=== PATIENT | female | born 1945 | race Hispanic/Latino ===

== ENCOUNTER 2022-07-20 06:23 | Inpatient (IN) | payer MEDICARE ==
[~2022-07-20] VITALS: Ht 152.4 cm; Wt 50.8 kg
[2022-07-20] MEDS ORDERED: MORPHINE 2 MG SYG ONE (08:15)
[2022-07-20] MEDS ORDERED: MORPHINE 2 MG SYG IVP ONE (08:30)
[2022-07-20] MEDS ORDERED: LEVE500T19 PO (09:27)
[2022-07-20] MEDS ORDERED: EMPA10TA PO (09:27)
[2022-07-20] MEDS ORDERED: SERT-438 PO (09:27)
[2022-07-20] MEDS ORDERED: CETI10TA57 PO (09:27)
[2022-07-20] MEDS ORDERED: OLAN5TAB76 PO (09:27)
[2022-07-20] MEDS ORDERED: FOLI1 PO (09:27)
[2022-07-20] MEDS ORDERED: ATOR10 PO (09:27)
[2022-07-20 10:11] LABS: BASOPHILS % (AUTO) 0.2 % (0.0-5.0); EOSINOPHILS % (AUTO) 0.3 % (0.0-8.0); HEMATOCRIT 27.5 % (36-48); LYMPHOCYTES % (AUTO) 10.8 % (21.0-51.0); MEAN CORPUSCULAR HEMOGLOBIN 30.1 pg (27.0-33.0); MEAN CORPUSCULAR HGB CONC 33.1 g/dL (32.0-36.0); MEAN CORPUSCULAR VOLUME 91.1 fL (79-99); NEUTROPHILS % (AUTO) 82.1 % (40.0-77.0); PLATELET COUNT (AUTO) 238 K/uL (130-400); RED BLOOD CELL COUNT(AUTO) 3.02 MIL/uL (4.00-5.50); RED CELL DISTRIBUTION WIDTH 13.6 % (11.0-15.5); WHITE BLOOD COUNT (AUTO) 9.5 K/uL (4.8-10.8)
[2022-07-20 10:22] LABS: INR 1.06 (0.85-1.15); PROTHROMBIN TIME 11.5 SEC (9.6-11.6)
[2022-07-20 10:23] LABS: PARTIAL THROMBOPLASTIN TIME 30.2 SEC (26.3-35.5)
[2022-07-20 10:26] LABS: ALBUMIN 3.9 g/dL (3.5-5.0); CREATININE 1.4 mg/dL (0.5-1.5); POTASSIUM 4.3 mmol/L (3.5-5.1)
[2022-07-20 10:27] LABS: APPEARANCE,URINE CLEAR (CLEAR); BILIRUBIN,URINE NEGATIVE (NEGATIVE); COLOR,URINE COLORLESS (YELLOW); GLUCOSE, URINE (UA) >=1000 mg/dL (NEGATIVE); KETONES,URINE NEGATIVE (NEGATIVE); LEUKOCYTE ESTERASE ,URINE 75 Leu/uL (NEGATIVE); NITRATE,URINE NEGATIVE (NEGATIVE); OCCULT BLOOD,URINE NEGATIVE (NEGATIVE); PROTEIN,URINE NEGATIVE (NEGATIVE); UROBILINOGEN,URINE 0.2 mg/dL (0.2-1.0)
[2022-07-20 10:30] LABS: BACTERIA,URINE FEW /HPF (None Seen); MUCUS,URINE RARE LPF (None Seen); RBC,URINE 0-1 /HPF (0-1); SQUAMOUS EPITHELIAL CELL,UR RARE /HPF (0-2)
[2022-07-20] MEDS ORDERED: LIDOCAINE 5% TOPICAL PATCH TP SCH (11:30)
[2022-07-20] MEDS ORDERED: KETOROLAC 15MG/ML VIAL (15MG/ML) IV PRN (11:30)
[2022-07-20] MEDS ORDERED: HYDROMORPHONE 0.5 MG SYG (0.5MG/0.5ML) IVP PRN (11:30)
[2022-07-20] MEDS: INSULIN HUMULIN R 100 UNIT/ML 3ML SQ SCH ×3 (11:30→21:00)
[2022-07-20] MEDS ORDERED: 0.9%NACL 1000ML 1,000 ML IV ONE (11:30)
[2022-07-20] MEDS ORDERED: LEVETIRACETAM 500 MG TABLET PO ONE (11:30)
[2022-07-20] MEDS ORDERED: PANTOPRAZOLE 40 MG TAB DR PO SCH (11:30)
[2022-07-20] MEDS ORDERED: CEFTRIAXONE 1G VIAL ONE (11:30)
[2022-07-20] MEDS: LEVETIRACETAM 500 MG TABLET PO SCH ×2 (11:35→22:09)
[2022-07-20] MEDS: 0.9%NACL 1000ML 1,000 ML IV SCH (11:35)
[2022-07-20] MEDS: CEFTRIAXONE 1G VIAL IVP SCH (11:35)
[2022-07-20 12:02] LABS: CREATINE KINASE, TOTAL 87 U/L (21-232); CRP QUANTITATIVE < 2.00 mg/L (0.00-9.0)
[2022-07-20 12:14] LABS: % IRON SATURATION 13.8 % (22-44)
[2022-07-20 12:24] LABS: RETICULOCYTE % (AUTO) 1.39 % (0.42-2.23)
[2022-07-20] MEDS ORDERED: PANTOPRAZOLE 40 MG/VIAL ONE (13:28)
[2022-07-20] MEDS ORDERED: ACETAMINOPHEN 500 MG TABLET ONE (13:29)
[2022-07-20] MEDS ORDERED: LIDOCAINE 5% TOPICAL PATCH TP ONE (13:29)
[2022-07-20] MEDS ORDERED: CETIRIZINE HCL 5 MG TABLET PO ONE ×2 (13:29→13:34)
[2022-07-20] MEDS: CETIRIZINE HCL 5 MG TABLET PO SCH (13:35)
[2022-07-20] MEDS: ACETAMINOPHEN 500 MG TABLET PO SCH ×2 (13:36→22:09)
[2022-07-20] MEDS: PANTOPRAZOLE 40 MG/VIAL IVP SCH (13:39)
[2022-07-20 16:14] LABS: HEMATOCRIT 28.2 % (36-48)
[2022-07-20 16:52] VITALS: BP 137/71
[2022-07-20 20:00] VITALS: BP 132/69
[2022-07-20] MEDS: OLANZAPINE 5 MG TAB PO SCH (20:49)
[2022-07-20] MEDS: SERTRALINE HCL 50 MG TABLET PO SCH (20:49)
[2022-07-20] MEDS: ATORVASTATIN 10 MG TABLET PO SCH (20:49)
[2022-07-20 22:19] LABS: HEMATOCRIT 27.3 % (36-48)
[2022-07-21] VITALS: BP 155/76
[2022-07-21] MEDS: 0.9%NACL 1000ML 1,000 ML IV SCH (01:18)
[2022-07-21 02:28] LABS: HEMATOCRIT 24.6 % (36-48)
[2022-07-21 04:00] VITALS: BP 132/67
[2022-07-21 05:07] LABS: CREATININE 1.3 mg/dL (0.5-1.5)
[2022-07-21] MEDS: INSULIN HUMULIN R 100 UNIT/ML 3ML SQ SCH ×4 (05:32→21:00)
[2022-07-21 07:48] VITALS: BP 149/72
[2022-07-21] MEDS: CETIRIZINE HCL 5 MG TABLET PO SCH (08:59)
[2022-07-21] MEDS: FOLIC ACID 1 MG TABLET PO SCH (08:59)
[2022-07-21] MEDS: PANTOPRAZOLE 40 MG/VIAL IVP SCH (10:42)
[2022-07-21] MEDS: LEVETIRACETAM 500 MG TABLET PO SCH ×2 (10:42→22:29)
[2022-07-21] MEDS: CEFTRIAXONE 1G VIAL IVP SCH (10:42)
[2022-07-21] MEDS: ACETAMINOPHEN 500 MG TABLET PO SCH (10:46)
[2022-07-21 11:30] VITALS: BP 108/56
[2022-07-21 15:30] VITALS: BP 120/59
[2022-07-21 19:33] LABS: HEMATOCRIT 24.3 % (36-48)
[2022-07-21 20:00] VITALS: BP 123/64
[2022-07-21] MEDS: ATORVASTATIN 10 MG TABLET PO SCH (20:17)
[2022-07-21] MEDS: OLANZAPINE 5 MG TAB PO SCH (20:17)
[2022-07-21] MEDS: SERTRALINE HCL 50 MG TABLET PO SCH (20:18)
[2022-07-21] MEDS: ACETAMINOPHEN WITH CODEINE 1 TAB TAB PO PRN (20:44)
[2022-07-22] VITALS (7 sets, daily range): BP systolic 61–149; BP diastolic 35–79
[2022-07-22] MEDS: ACETAMINOPHEN WITH CODEINE 1 TAB TAB PO PRN (05:10)
[2022-07-22] MEDS: INSULIN HUMULIN R 100 UNIT/ML 3ML SQ SCH ×4 (05:41→20:57)
[2022-07-22 06:00] LABS: BASOPHILS % (AUTO) 0.5 % (0.0-5.0); HEMATOCRIT 26.4 % (36-48); LYMPHOCYTES % (AUTO) 20.2 % (21.0-51.0); MEAN CORPUSCULAR HEMOGLOBIN 30.4 pg (27.0-33.0); MEAN CORPUSCULAR HGB CONC 32.2 g/dL (32.0-36.0); MEAN CORPUSCULAR VOLUME 94.3 fL (79-99); MONOCYTES % (AUTO) 7.5 % (3.0-13.0); NEUTROPHILS % (AUTO) 70.3 % (40.0-77.0); PLATELET COUNT (AUTO) 213 K/uL (130-400); RED CELL DISTRIBUTION WIDTH 13.8 % (11.0-15.5); WHITE BLOOD COUNT (AUTO) 6.3 K/uL (4.8-10.8)
[2022-07-22 06:19] LABS: % IRON SATURATION 12.9 % (22-44)
[2022-07-22 06:31] LABS: ALBUMIN 3.2 g/dL (3.5-5.0); CREATININE 1.4 mg/dL (0.5-1.5); MAGNESIUM 1.9 mg/dL (1.80-2.40); TOTAL PROTEIN, SERUM 6.3 g/dL (6.0-8.3)
[2022-07-22] MEDS: CEFTRIAXONE 1G VIAL IVP SCH (09:27)
[2022-07-22] MEDS: CETIRIZINE HCL 5 MG TABLET PO SCH (09:27)
[2022-07-22] MEDS: FOLIC ACID 1 MG TABLET PO SCH (09:27)
[2022-07-22] MEDS: PANTOPRAZOLE 40 MG/VIAL IVP SCH (09:27)
[2022-07-22] MEDS: LEVETIRACETAM 500 MG TABLET PO SCH ×2 (09:27→21:00)
[2022-07-22] MEDS: SERTRALINE HCL 50 MG TABLET PO SCH (19:36)
[2022-07-22] MEDS: ATORVASTATIN 10 MG TABLET PO SCH (19:36)
[2022-07-22] MEDS: OLANZAPINE 5 MG TAB PO SCH (19:36)
[2022-07-22] MEDS: HEPARIN 5,000 UNIT VIAL SQ SCH (19:41)
[2022-07-23] VITALS (7 sets, daily range): BP systolic 81–146; BP diastolic 42–67
[2022-07-23] MEDS: ACETAMINOPHEN WITH CODEINE 1 TAB TAB PO PRN ×2 (05:09→12:14)
[2022-07-23] MEDS: INSULIN HUMULIN R 100 UNIT/ML 3ML SQ SCH ×4 (05:49→21:36)
[2022-07-23] MEDS: HEPARIN 5,000 UNIT VIAL SQ SCH ×3 (06:10→23:20)
[2022-07-23] MEDS: FOLIC ACID 1 MG TABLET PO SCH (08:46)
[2022-07-23] MEDS: FERROUS SULFATE 325 MG TABLET.DR PO SCH (08:46)
[2022-07-23] MEDS: CETIRIZINE HCL 5 MG TABLET PO SCH (08:46)
[2022-07-23] MEDS ORDERED: 0.9%NACL 50ML IV SCH (10:00)
[2022-07-23] MEDS: PANTOPRAZOLE 40 MG/VIAL IVP SCH (11:19)
[2022-07-23] MEDS: ZOSYN 3.375GM +NS 50ML IVPB SCH ×2 (11:20→20:16)
[2022-07-23] MEDS: LEVETIRACETAM 500 MG TABLET PO SCH ×2 (11:20→23:06)
[2022-07-23] MEDS: OLANZAPINE 5 MG TAB PO SCH (20:16)
[2022-07-23] MEDS: SERTRALINE HCL 50 MG TABLET PO SCH (20:16)
[2022-07-23] MEDS: ATORVASTATIN 10 MG TABLET PO SCH (20:23)
[2022-07-24] VITALS (10 sets, daily range): BP systolic 88–175; BP diastolic 42–85
[2022-07-24] MEDS ORDERED: 0.9%NACL 1000ML 1,000 ML IV ONE (01:00)
[2022-07-24] MEDS ORDERED: NACL IV ONE (01:00)
[2022-07-24] MEDS: INSULIN HUMULIN R 100 UNIT/ML 3ML SQ SCH ×4 (05:40→19:55)
[2022-07-24] MEDS: FERROUS SULFATE 325 MG TABLET.DR PO SCH (09:02)
[2022-07-24] MEDS: FOLIC ACID 1 MG TABLET PO SCH (09:02)
[2022-07-24] MEDS: ZOSYN 3.375GM +NS 50ML IVPB SCH ×2 (09:02→20:21)
[2022-07-24] MEDS: CETIRIZINE HCL 5 MG TABLET PO SCH (09:02)
[2022-07-24] MEDS: HEPARIN 5,000 UNIT VIAL SQ SCH (11:20)
[2022-07-24] MEDS: PANTOPRAZOLE 40 MG/VIAL IVP SCH (11:20)
[2022-07-24] MEDS: LEVETIRACETAM 500 MG TABLET PO SCH (11:20)
[2022-07-24] MEDS: OLANZAPINE 5 MG TAB PO SCH (20:20)
[2022-07-24] MEDS: ATORVASTATIN 10 MG TABLET PO SCH (20:20)
== END 2022-07-24 21:30 | DRG 535 ==
LOC: EDH 06:23 → EDHIP 11:07 → 4CH 14:45
PROVIDERS: ADMIT Internal Medicine; ATTEND Internal Medicine
DX: S32.592A Other specified fracture of left pubis, initial encounter for closed fracture (principal); E43 Unspecified severe protein-calorie malnutrition; N39.0 Urinary tract infection, site not specified; Z16.12 Extended spectrum beta lactamase (ESBL) resistance; E11.319 Type 2 diabetes mellitus with unspecified diabetic retinopathy without macular edema; Z20.822 Contact with and (suspected) exposure to COVID-19; E78.5 Hyperlipidemia, unspecified; H54.7 Unspecified visual loss; R56.9 Unspecified convulsions; D64.9 Anemia, unspecified; I10 Essential (primary) hypertension; H54.3 Unqualified visual loss, both eyes; B96.89 Other specified bacterial agents as the cause of diseases classified elsewhere; W01.0XXA Fall on same level from slipping, tripping and stumbling without subsequent striking against object, initial encounter; E86.0 Dehydration; Y93.89 Activity, other specified; Y92.89 Other specified places as the place of occurrence of the external cause; Y99.8 Other external cause status; Z90.49 Acquired absence of other specified parts of digestive tract; Z68.21 Body mass index [BMI] 21.0-21.9, adult
CPT/HCPCS: 36415; 70450; 73502; 80048; 80053; 81001; 82550; 82607; 82728; 82746; 82948; 83036; 83540; 83550; 83735; 84145; 84443; 85014; 85018; 85025; 85045; 85610; 85651; 85730; 86140; 86850; 86900; 86901; 87077; 87088; 87186; 87635; 87804; 97039; C9113; G0378; J0696; J1644; J1885; J2543; J7030

== ENCOUNTER 2022-08-29 09:45 | Emergency (ER) | payer MEDICARE ==
[~2022-08-29] VITALS: Ht 144.8 cm; Wt 41.7 kg
[~2022-08-29 09:45] MED LIST: ATOR10 PO; CETI10TA57 PO; EMPA10TA PO; FOLI1 PO; LEVE500T19 PO; OLAN5TAB76 PO; SERT-438 PO
[2022-08-29 09:48] VITALS: BP 104/57
[2022-08-29] MEDS ORDERED: LACTATED RINGERS 1000ML 1,000 ML IV ONE (10:00)
[2022-08-29 10:31] LABS: APPEARANCE,URINE CLOUDY (CLEAR); BILIRUBIN,URINE NEGATIVE (NEGATIVE); COLOR,URINE LIGHT-YELLOW (YELLOW); GLUCOSE, URINE (UA) >=1000 mg/dL (NEGATIVE); KETONES,URINE NEGATIVE (NEGATIVE); LEUKOCYTE ESTERASE ,URINE 500 Leu/uL (NEGATIVE); MUCUS,URINE RARE LPF (None Seen); NITRATE,URINE NEGATIVE (NEGATIVE); OCCULT BLOOD,URINE NEGATIVE (NEGATIVE); PH,URINE 5.5 (5.0-8.0); PROTEIN,URINE NEGATIVE (NEGATIVE); SQUAMOUS EPITHELIAL CELL,UR RARE /HPF (0-2); UROBILINOGEN,URINE 0.2 mg/dL (0.2-1.0); WBC,URINE TNTC /HPF (0-1); YEAST,URINE BUDDING FEW /HPF (None Seen)
[2022-08-29 10:43] LABS: BASOPHILS % (AUTO) 0.5 % (0.0-5.0); EOSINOPHILS % (AUTO) 1.3 % (0.0-8.0); HEMATOCRIT 26.5 % (36-48); LYMPHOCYTES % (AUTO) 16.2 % (21.0-51.0); MEAN CORPUSCULAR HEMOGLOBIN 29.7 pg (27.0-33.0); MEAN CORPUSCULAR HGB CONC 31.7 g/dL (32.0-36.0); MEAN CORPUSCULAR VOLUME 93.6 fL (79-99); MONOCYTES % (AUTO) 7.4 % (3.0-13.0); PLATELET COUNT (AUTO) 344 K/uL (130-400); RED BLOOD CELL COUNT(AUTO) 2.83 MIL/uL (4.00-5.50); RED CELL DISTRIBUTION WIDTH 14.3 % (11.0-15.5); WHITE BLOOD COUNT (AUTO) 8.2 K/uL (4.8-10.8)
[2022-08-29 11:03] LABS: ALBUMIN 3.1 g/dL (3.5-5.0); CREATININE 1.3 mg/dL (0.5-1.5); POTASSIUM 4.3 mmol/L (3.5-5.1); TOTAL PROTEIN, SERUM 6.3 g/dL (6.0-8.3)
== END 2022-08-29 11:56 | disposition home or self-care (01) ==
LOC: EDH 09:45
DX: N20.0 Calculus of kidney (principal); N39.0 Urinary tract infection, site not specified; F03.93 Unspecified dementia, unspecified severity, with mood disturbance; E11.9 Type 2 diabetes mellitus without complications; Z90.49 Acquired absence of other specified parts of digestive tract; Z79.899 Other long term (current) drug therapy
CPT/HCPCS: 99284; 80053; 85025; 87088; 81001; 36415; 74176; 96360; 93005; J7120

== ENCOUNTER 2023-03-30 10:06 | Emergency (ER) | payer MEDICARE ==
[~2023-03-30] VITALS: Ht 144.8 cm; Wt 48.1 kg
[2023-03-30 10:41] LABS: RAPID GROUP A STREP negative (NEGATIVE)
[2023-03-30 10:46] LABS: SARS-CoV-2, RNA, NAAT NEGATIVE SARS CoV-2 (NEGATIVE)
[2023-03-30 10:50] LABS: INFLUENZA TYPE A Negative For Type A (NEGATIVE); INFLUENZA TYPE B Negative For Type B (NEGATIVE)
[2023-03-30 12:47] VITALS: BP 129/55; PULSE 71; RESP 15; O2SAT 98
[2023-03-30 13:05] LABS: BASOPHILS # (AUTO) 0.02 K/uL (0.00-0.20); BASOPHILS % (AUTO) 0.4 % (0.0-5.0); HEMATOCRIT 31.2 % (36-48); IMMATURE GRANULOCYTE ABSOLUTE 0.03 K/uL (0-1); LYMPHOCYTES # (AUTO) 1.2 K/uL (1.0-4.8); LYMPHOCYTES % (AUTO) 24.2 % (21.0-51.0); MEAN CORPUSCULAR HEMOGLOBIN 31.9 pg (27.0-33.0); MEAN CORPUSCULAR HGB CONC 32.4 g/dL (32.0-36.0); MEAN CORPUSCULAR VOLUME 98.4 fL (79-99); MONOCYTES # (AUTO) 0.5 K/uL (0.1-1.0); MONOCYTES % (AUTO) 10.5 % (3.0-13.0); NEUTROPHILS # (AUTO) 3.1 K/uL (1.8-7.7); NEUTROPHILS % (AUTO) 64.3 % (40.0-77.0); PLATELET COUNT (AUTO) 275 K/uL (130-400); RED BLOOD CELL COUNT(AUTO) 3.17 MIL/uL (4.00-5.50); RED CELL DISTRIBUTION WIDTH 15.6 % (11.0-15.5); WHITE BLOOD COUNT (AUTO) 4.8 K/uL (4.8-10.8)
[2023-03-30 13:14] LABS: CREATININE 1.5 mg/dL (0.5-1.5); POTASSIUM 4.4 mmol/L (3.5-5.1)
[2023-03-30 13:19] LABS: ALBUMIN 3.3 g/dL (3.5-5.0); BILIRUBIN,TOTAL 0.3 mg/dL (0.2-1.0)
[2023-03-30 13:28] LABS: B-TYPE NATRIURETIC PEPTIDE 301 pg/mL (0-100)
[2023-03-30] MEDS ORDERED: BENZ-39 PO (13:35)
== END 2023-03-30 13:51 | disposition home or self-care (01) ==
LOC: EDH 10:06
DX: D64.9 Anemia, unspecified (principal); R05.9 Cough, unspecified; E11.65 Type 2 diabetes mellitus with hyperglycemia; N17.9 Acute kidney failure, unspecified; I10 Essential (primary) hypertension; F32.A Depression, unspecified; Z20.822 Contact with and (suspected) exposure to COVID-19; Z79.899 Other long term (current) drug therapy; Z90.49 Acquired absence of other specified parts of digestive tract; Z98.890 Other specified postprocedural states
CPT/HCPCS: 99285; 71045; 87635; 84484; 80053; 83880; 85025; 87880; 87804 ×2; 36415; 93005; C9803